=== PATIENT | female | born 1985 | race American Indian/Alaskan Native ===

== ENCOUNTER 2017-11-10 20:40 | Emergency (ER) | payer SELFPAY ==
[2017-11-10 21:14] LABS: Basophils % (Auto) 0.5 % (0.0-1.8); Eosinophils % (Auto) 0.6 % (0.0-4.3); Hemoglobin 8.7 gm/dl (10.1-14.3); Lymphocytes # (Auto) 1.7 K/mm3 (1.2-5.4); Mean Corpuscular HGB Conc 30 % (30-34); Monocytes # (Auto) 0.6 K/mm3 (0.0-0.8); Monocytes % (Auto) 7.6 % (0.0-7.3); Platelet Count 379 K/mm3 (140-440); Red Blood Count 4.26 M/mm3 (3.65-5.03); Red Cell Distribution Width 17.6 % (13.2-15.2)
[2017-11-10 21:15] LABS: Mean Corpuscular Hemoglobin 20 pg (28-32); Mean Corpuscular Volume 68 fl (79-97)
[2017-11-10 21:33] LABS: Alanine Aminotransferase 6 units/L (7-56); Albumin 4.3 g/dL (3.9-5); BUN/Creatinine Ratio 30; Blood Urea Nitrogen 15 mg/dL (7-17); Calcium 8.9 mg/dL (8.4-10.2); Hemolysis Index 9
[2017-11-10 21:43] LABS: Bilirubin,Urine NEG (Negative); Blood,Urine NEG (Negative); Color,Urine Yellow (Yellow); Mucus,Urine 3+ /HPF; Nitrite,Urine NEG (Negative); Urobilinogen,Urine < 2.0 mg/dL (<2.0)
[2017-11-10] MEDS ORDERED: ZOFRAN IV ONE (22:02)
[2017-11-10] MEDS ORDERED: NACL 0.9% 1000 ML 1,000 ML IV ONE (22:02)
--- NOTE | 2017-11-10 23:39 | Emergency Department Report ---
ED HPI - General Chief complaint: Abdominal Pain Stated complaint: N/V Abdominal Pain Time Seen by Provider: 11/10/17 21:55 Source: patient Mode of arrival: Ambulatory Limitations: No Limitations - History of Present Illness Initial comments: Patient is a 32-year-old Female who is presenting with nausea vomiting for the past week. Patient states she took a home test and is but does not know how far along she is last missed her period was 09/26/2017. Patient states she has some minor suprapubic discomfort but denies any dysuria or urinary frequency or bleeding. Patient states she has a clear vaginal discharge for the past 2 days. Patient denies diarrhea fevers chills cough or body aches at this time. - Related Data Previous Rx's Medication Instructions Recorded Last Taken Type Nitrofurantoin [place]/M-Cryst 100 mg PO Q12HR #14 capsule 11/10/17 Unknown Rx [Macrobid CAP] Vit No.129/Iron/Folic 1 each PO QDAY #1 bottle 11/10/17 Unknown Rx [ One Daily Tablet] Promethazine [Phenergan TAB] 25 mg PO Q8HR PRN #15 tab 11/10/17 Unknown Rx Allergies Allergy/AdvReac Type Severity Reaction Status Date / Time No Known Allergies Allergy Verified 10/04/15 21:37 ED Review of Systems ROS: Stated complaint: N/V Abdominal Pain Other details as noted in HPI Comment: All other systems reviewed and negative ED Past Medical Hx - Past Medical History Previous Medical History?: No - Surgical History Past Surgical History?: No - Social History Smoking Status: Never Smoker Substance Use Type: None - Medications Home Medications: Home Medications Medication Instructions Recorded Confirmed Last Taken Type Nitrofurantoin [place]/M-Cryst 100 mg PO Q12HR #14 capsule 11/10/17 Unknown Rx [Macrobid CAP] Vit No.129/Iron/Folic 1 each PO QDAY #1 bottle 11/10/17 Unknown Rx [ One Daily Tablet] Promethazine [Phenergan TAB] 25 mg PO Q8HR PRN #15 tab 11/10/17 Unknown Rx ED Physical Exam - General Limitations: No Limitations General appearance: alert, in no apparent distress - Head Head exam: Present: atraumatic, normocephalic - Eye Eye exam: Present: normal appearance - ENT ENT exam: Present: mucous membranes moist - Neck Neck exam: Present: normal inspection - Respiratory Respiratory exam: Present: normal lung sounds bilaterally. Absent: respiratory distress - Cardiovascular Cardiovascular Exam: Present: regular rate, normal rhythm. Absent: systolic murmur, diastolic murmur, rubs, gallop - GI/Abdominal GI/Abdominal exam: Present: soft, tenderness (suprapubic), normal bowel sounds. Absent: distended, guarding, rebound - Extremities Exam Extremities exam: Present: normal inspection - Back Exam Back exam: Present: normal inspection - Neurological Exam Neurological exam: Present: alert, oriented X3 - Psychiatric Psychiatric exam: Present: normal affect, normal mood - Skin Skin exam: Present: warm, dry, intact, normal color. Absent: rash ED Course Vital Signs 11/10/17 11/10/17 20:52 22:02 Temperature 98 F Pulse Rate 90 88 Respiratory 18 16 Rate Blood Pressure 108/64 Blood Pressure 121/78 [Left] O2 Sat by Pulse 100 98 Oximetry ED Medical Decision Making - Lab Data Result diagrams: 11/10/17 21:02 11/10/17 21:02 Lab Results 11/10/17 11/10/17 11/10/17 Range/Units 21:02 21:02 21:02 WBC 8.1 (4.5-11.0) K/mm3 RBC 4.26 (3.65-5.03) M/mm3 Hgb 8.7 L (10.1-14.3) gm/dl Hct 29.0 L (30.3-42.9) % MCV 68 L (79-97) fl MCH 20 L (28-32) pg MCHC 30 (30-34) % RDW 17.6 H (13.2-15.2) % Plt Count 379 (140-440) K/mm3 Lymph % (Auto) 21.0 (13.4-35.0) % [place] % (Auto) 7.6 H (0.0-7.3) % Eos % (Auto) 0.6 (0.0-4.3) % Baso % (Auto) 0.5 (0.0-1.8) % Lymph # 1.7 (1.2-5.4) K/mm3 [place] # 0.6 (0.0-0.8) K/mm3 Eos # 0.0 (0.0-0.4) K/mm3 Baso # 0.0 (0.0-0.1) K/mm3 Seg Neutrophils % 70.3 H (40.0-70.0) % Seg Neutrophils # 5.7 (1.8-7.7) K/mm3 Sodium 135 L (137-145) mmol/L Potassium 3.4 L (3.6-5.0) mmol/L Chloride 97.2 L (98-107) mmol/L Carbon Dioxide 21 L (22-30) mmol/L Anion Gap 20 mmol/L BUN 15 (7-17) mg/dL Creatinine 0.5 L (0.7-1.2) mg/dL Estimated GFR > 60 ml/min BUN/Creatinine Ratio 30 % Glucose 105 H (65-100) mg/dL Calcium 8.9 (8.4-10.2) mg/dL Total Bilirubin 0.60 (0.1-1.2) mg/dL AST 11 (5-40) units/L ALT 6 L (7-56) units/L Alkaline Phosphatase 40 (35-129) units/L Total Protein 8.4 H (6.3-8.2) g/dL Albumin 4.3 (3.9-5) g/dL Albumin/Globulin Ratio 1.0 % HCG, Quant 06830 H (0-4) mIU/mL Urine Color (Yellow) Urine Turbidity (Clear) Urine pH (5.0-7.0) Ur Specific [place] (1.003-1.030) Urine Protein (Negative) mg/dL Urine Glucose (UA) (Negative) mg/dL Urine Ketones (Negative) mg/dL Urine Blood (Negative) Urine Nitrite (Negative) Urine Bilirubin (Negative) Urine Urobilinogen (<2.0) mg/dL Ur Leukocyte Esterase (Negative) Urine WBC (Auto) (0.0-6.0) /HPF Urine RBC (Auto) (0.0-6.0) /HPF U Epithel Cells (Auto) (0-13.0) /HPF Urine Mucus /HPF /11/26 Range/Units 21:18 WBC (4.5-11.0) K/mm3 RBC (3.65-5.03) M/mm3 Hgb (10.1-14.3) gm/dl Hct (30.3-42.9) % MCV (79-97) fl MCH (28-32) pg MCHC (30-34) % RDW (13.2-15.2) % Plt Count (140-440) K/mm3 Lymph % (Auto) (13.4-35.0) % [place] % (Auto) (0.0-7.3) % Eos % (Auto) (0.0-4.3) % Baso % (Auto) (0.0-1.8) % Lymph # (1.2-5.4) K/mm3 [place] # (0.0-0.8) K/mm3 Eos # (0.0-0.4) K/mm3 Baso # (0.0-0.1) K/mm3 Seg Neutrophils % (40.0-70.0) % Seg Neutrophils # (1.8-7.7) K/mm3 Sodium (137-145) mmol/L Potassium (3.6-5.0) mmol/L Chloride (98-107) mmol/L Carbon Dioxide (22-30) mmol/L Anion Gap mmol/L BUN (7-17) mg/dL Creatinine (0.7-1.2) mg/dL Estimated GFR ml/min BUN/Creatinine Ratio % Glucose (65-100) mg/dL Calcium (8.4-10.2) mg/dL Total Bilirubin (0.1-1.2) mg/dL AST (5-40) units/L ALT (7-56) units/L Alkaline Phosphatase (35-129) units/L Total Protein (6.3-8.2) g/dL Albumin (3.9-5) g/dL Albumin/Globulin Ratio % HCG, Quant (0-4) mIU/mL Urine Color Yellow (Yellow) Urine Turbidity Clear (Clear) Urine pH 5.0 (5.0-7.0) Ur Specific [place] 1.026 (1.003-1.030) Urine Protein 30 mg/dl (Negative) mg/dL Urine Glucose (UA) Neg (Negative) mg/dL Urine Ketones 20 (Negative) mg/dL Urine Blood Neg (Negative) Urine Nitrite Neg (Negative) Urine Bilirubin Neg (Negative) Urine Urobilinogen < 2.0 (<2.0) mg/dL Ur Leukocyte Esterase Lg (Negative) Urine WBC (Auto) 4.0 (0.0-6.0) /HPF Urine RBC (Auto) 4.0 (0.0-6.0) /HPF U Epithel Cells (Auto) 9.0 (0-13.0) /HPF Urine Mucus 3+ /HPF - Medical Decision Making Patient is a 32-year-old female who is presenting with nausea vomiting. Patient apparently several weeks according to her last menstrual period. Patient has a Quant of 22,000 which is consistent with her estimated gestational age. Patient will be treated for her UTI she received IV fluids and nausea medicine here in the department and is feeling better like to go home. Critical care attestation.: If time is entered above; I have spent that time in minutes in the direct care of this critically ill patient, excluding procedure time. ED Disposition Clinical Impression: Hyperemesis arising during , UTI in Disposition: DC- TO HOME OR SELFCARE Is pt being admited?: No Does the pt Need Aspirin: No Condition: Stable Instructions: Urinary Tract Infection in Women (ED), Morning Sickness (ED), (ED) Prescriptions: Nitrofurantoin [place]/M-Cryst [Macrobid CAP] 100 mg PO Q12HR #14 capsule Vit No.129/Iron/Folic [ One Daily Tablet] 1 each PO QDAY #1 bottle Promethazine [Phenergan TAB] 25 mg PO Q8HR PRN #15 tab PRN Reason: Nausea Referrals: DARIEL LEWIS MD [Staff Physician] - 3-5 Days
[2017-11-11 00:33] VITALS: BP 118/68
== END 2017-11-11 00:15 | disposition home or self-care (01) ==
LOC: ED 20:40
DX: O23.41 Unspecified infection of urinary tract in pregnancy, first trimester (principal); O21.9 Vomiting of pregnancy, unspecified; Z3A.01 Less than 8 weeks gestation of pregnancy
CPT/HCPCS: 36415; 80053; 81001; 84702; 85025; 96361; 96374; 99283; J2405; J7030

== ENCOUNTER 2017-11-14 19:52 | Emergency (ER) | payer SELFPAY ==
[2017-11-14 21:50] VITALS: BP 106/70
[2017-11-15] MEDS ORDERED: REGLAN IV ONE (02:43)
[2017-11-15] MEDS ORDERED: NACL 0.9% 1000 ML 1,000 ML IV ONE (02:43)
--- NOTE | 2017-11-15 02:46 | Emergency Department Report ---
HPI - General Chief Complaint: Nausea/Vomiting/Diarrhea Time Seen by Provider: 11/15/17 02:34 - HPI HPI: Patient is a 32-year-old female who presents to ED complaining of nausea vomiting the past week. Patient states S last menstrual period was September 26, 2017 she took a home test that has been positive. Patient states that she is unable to keep anything down even water. She states she has an appointment with her [employer] later this month. Patient denies any vaginal bleeding, vaginal discharge or problems urinating. Pt was seen here 11/10/17 for similar sxs and states the nausea medication isnt working. ED Past Medical Hx - Past Medical History Previous Medical History?: No - Surgical History Past Surgical History?: No - Social History Smoking Status: Never Smoker Substance Use Type: None - Medications Home Medications: Home Medications Medication Instructions Recorded Confirmed Last Taken Type Nitrofurantoin [place]/M-Cryst 100 mg PO Q12HR #14 capsule 11/10/17 Unknown Rx [Macrobid CAP] Vit No.129/Iron/Folic 1 each PO QDAY #1 bottle 11/10/17 Unknown Rx [ One Daily Tablet] Promethazine [Phenergan TAB] 25 mg PO Q8HR PRN #15 tab 11/10/17 Unknown Rx Doxylamine Succinate/Vit B6 2 each PO QHS #40 tablet. 11/15/17 Unknown Rx [Arun Abdul 10-10 mg Tablet] ED Review of Systems ROS: Stated complaint: VOMITING/NAUSEA 6 WEEKS PREG Other details as noted in HPI Constitutional: denies: chills, fever Eyes: denies: eye pain, eye discharge, vision change ENT: denies: ear pain, throat pain Respiratory: denies: cough, shortness of breath, wheezing Cardiovascular: denies: chest pain, palpitations Endocrine: no symptoms reported Gastrointestinal: nausea, vomiting. denies: abdominal pain, diarrhea Genitourinary: denies: urgency, dysuria, discharge Musculoskeletal: denies: back pain, joint swelling, arthralgia Skin: denies: rash, lesions Neurological: denies: headache, weakness, paresthesias Psychiatric: denies: anxiety, depression Hematological/Lymphatic: denies: easy bleeding, easy bruising Physical Exam - Physical Exam Vital Signs: Vital Signs 11/14/17 21:48 Temperature 98.7 F Pulse Rate 85 Respiratory 16 Rate Blood Pressure 106/70 [Right] Physical Exam: GENERAL: Alert and oriented x3, no apparent distress, Normal Gait, atraumatic. No active vomiting during ED stay. Sitting comfortably in the room HEAD: Head is normocephalic and a-traumatic. MOUTH:Mouth is well hydrated and without lesions. Tonsils nonerythematous or swollen, Uvula midline, Tongue not elevated. Mucous membranes are moist. Posterior pharynx clear, no exudate or lesions. Patent airways. LUNGS: Symetrical with respiration, No wheezing, no rales or crackles, CTAB. HEART: S1, S2 present, regular rate and rhythm without murmur, no rubs, no gallops. Non tender to palpation ABDOMEN: No organomegaly was noted,Positive bowel sounds, soft, and non- distended. . Nontender to palpation on all Quadrants, NO CVA tenderness. SKIN: Warm and dry, No lesions, No ulceration or induration present. ED Course Vital Signs 11/14/17 21:48 Temperature 98.7 F Pulse Rate 85 Respiratory 16 Rate Blood Pressure 106/70 [Right] ED Medical Decision Making - Medical Decision Making 32-year-old female presents with nausea vomiting during ED course: Patient received 1 L of fluids and Reglan IV for nausea. Patient had no active vomiting in the ED Patient was seen here in the ED department on 11/10/2017 with similar symptoms. All labs were conducted and normal. was confirmed with Dr quant level of 22,000. Due to known status and no other preg symptoms, there is no need for test in the ED today. After administration of fluids and medication patient is feeling better like to go home. Vital signs stable. Patient is in no acute distress. Critical care attestation.: If time is entered above; I have spent that time in minutes in the direct care of this critically ill patient, excluding procedure time. ED Disposition Clinical Impression: Nausea and vomiting during Disposition: DC-01 TO HOME OR SELFCARE Is pt being admited?: No Does the pt Need Aspirin: No Condition: Stable Instructions: Morning Sickness (ED), (ED), Hyperemesis Gravidarum (ED ) Additional Instructions: Make sure to follow up with the primary care physician as discussed. Take all your medications as you've been prescribed. If you have any worsening symptoms or develop new symptoms please return to ED immediately. Prescriptions: Doxylamine Succinate/Vit B6 [Arun Abdul 10-10 mg Tablet] 2 each PO QHS #40 tablet. Referrals: ANDREWS REBOLLEDO MD [Primary Care Provider] - 3-5 Days MUKESH CUADRA MD [Referring] - 3-5 Days Forms: Work/School Release Form(ED)
== END 2017-11-15 03:30 | disposition home or self-care (01) ==
LOC: ED 19:52
DX: O21.9 Vomiting of pregnancy, unspecified (principal); Z3A.01 Less than 8 weeks gestation of pregnancy
CPT/HCPCS: 96361; 96374; 99282; J2765; J7030

== ENCOUNTER 2018-04-28 13:41 | Outpatient (CLI) | payer MEDICAID ==
[2018-04-28 14:44] VITALS: BP 110/68
[2018-04-28] MEDS ORDERED: LACTATED RINGERS 500 ML IV ONE ×2 (14:53→15:00)
[2018-04-28] MEDS ORDERED: BRETHINE SUB-Q ONE (16:00)
[2018-04-28 16:12] LABS: Bacteria,Urine 3+ /HPF (Negative); Bilirubin,Urine NEG (Negative); Blood,Urine NEG (Negative); Color,Urine Yellow (Yellow); Mucus,Urine FEW /HPF; Protein,Urine <15 mg/dL mg/dL (Negative); Urobilinogen,Urine < 2.0 mg/dL (<2.0)
== END 2018-04-28 16:35 | disposition home or self-care (01) ==
LOC: TRG 13:41
PROVIDERS: ATTEND Obstetrics & Gynecology
DX: O47.03 False labor before 37 completed weeks of gestation, third trimester (principal); Z3A.30 30 weeks gestation of pregnancy
CPT/HCPCS: 59025; 81001; 96372; J3105

== ENCOUNTER 2018-05-18 12:50 | Outpatient (CLI) | payer MEDICAID ==
[2018-05-18 13:07] VITALS: BP 100/59
[2018-05-18 15:32] LABS: Bacteria,Urine 2+ /HPF (Negative); Bilirubin,Urine NEG (Negative); Blood,Urine NEG (Negative); Color,Urine Yellow (Yellow); Mucus,Urine 1+ /HPF; Protein,Urine <15 mg/dL mg/dL (Negative); Urobilinogen,Urine < 2.0 mg/dL (<2.0)
[2018-05-18 15:38] LABS: Amphetamine Screen,Urine PRESUMPTIVE NEGATIVE; Benzodiazepines Screen,Urine PRESUMPTIVE NEGATIVE; Cannabinoid Screen,Urine PRESUMPTIVE NEGATIVE; Cocaine Screen,Urine PRESUMPTIVE NEGATIVE; Methadone Screen,Urine PRESUMPTIVE NEGATIVE; Opiate Screen,Urine PRESUMPTIVE NEGATIVE
== END 2018-05-18 15:57 | disposition home or self-care (01) ==
LOC: TRG 12:50
PROVIDERS: ATTEND Obstetrics & Gynecology
DX: O47.03 False labor before 37 completed weeks of gestation, third trimester (principal); Z3A.33 33 weeks gestation of pregnancy
CPT/HCPCS: 59025; 80307; 81001

== ENCOUNTER 2018-06-24 06:44 | Outpatient (CLI) | payer MEDICAID ==
[2018-06-24] MEDS ORDERED: LACTATED RINGERS 1,000 ML IV ONE (07:00)
[2018-06-24] MEDS ORDERED: VISTARIL PO PRN (07:43)
[2018-06-24] MEDS ORDERED: LACTATED RINGERS 1,000 ML ONE (08:42)
[2018-06-24 09:09] VITALS: BP 102/53
== END 2018-06-24 15:28 | disposition home or self-care (01) ==
LOC: TRG 06:44
PROVIDERS: ATTEND Obstetrics & Gynecology
DX: O47.1 False labor at or after 37 completed weeks of gestation (principal); Z3A.38 38 weeks gestation of pregnancy
CPT/HCPCS: J7120; Q0177

== ENCOUNTER 2020-10-11 16:09 | Emergency (ER) | payer MEDICAID ==
[2020-10-11 16:16] VITALS: BP 108/68
[2020-10-11 16:34] LABS: Basophils % (Auto) 0.4 % (0.0-1.8); Hematocrit 35.8 % (30.3-42.9); Hemoglobin 11.6 gm/dl (10.1-14.3); Lymphocytes # (Auto) 1.2 K/mm3 (1.2-5.4); Lymphocytes % (Auto) 11.3 % (13.4-35.0); Mean Corpuscular HGB Conc 32 % (30-34); Mean Corpuscular Volume 74 fl (79-97); Monocytes # (Auto) 0.8 K/mm3 (0.0-0.8); Monocytes % (Auto) 7.4 % (0.0-7.3); Platelet Count 327 K/mm3 (140-440); Red Blood Count 4.85 M/mm3 (3.65-5.03); Red Cell Distribution Width 17.1 % (13.2-15.2)
[2020-10-11 16:54] LABS: Alanine Aminotransferase 10 units/L (7-56); Albumin 4.7 g/dL (3.9-5); BUN/Creatinine Ratio 36; Blood Urea Nitrogen 29 mg/dL (7-17); Hemolysis Index 8
[2020-10-11] MEDS ORDERED: POTASSIUM CHLORIDE ER 20 MEQ TAB PO ONE ×2 (17:08→20:06)
[2020-10-11] MEDS ORDERED: ONDANSETRON 4 MG/2 ML INJ IV ONE (20:08)
[2020-10-11] MEDS ORDERED: SODIUM CHLORIDE 0.9% 1000 ML 1,000 ML IV ONE ×2 (20:08)
--- NOTE | 2020-10-11 20:12 | Emergency Department Report ---
HPI - General Chief Complaint: Nausea/Vomiting/Diarrhea Time Seen by Provider: 10/11/20 20:01 - HPI HPI: Room 38 The patient is a 34-year-old female present with a chief complaint of nausea vomiting. The patient states for the past 4 days she has had nausea vomiting with chills and a dry cough. Patient states she has been unable to keep anything down causing her to feel weak. Patient denies diarrhea or fever. Patient denies dysuria or hematuria. Patient denies pain of any type. Patient denies any known contact with Covid positive patients. ED Past Medical Hx - Past Medical History Previous Medical History?: No - Surgical History Past Surgical History?: No - Family History Family history: no significant - Social History Smoking Status: Never Smoker Substance Use Type: Alcohol (Occasional) - Medications Home Medications: Home Medications Medication Instructions Recorded Confirmed Last Taken Type Ferrous Sulfate [Feosol 325 MG tab] 1 tab PO DAILY 05/18/18 07/03/18 2 Days Ago History ~07/01/18 Vit No.129/Iron/Folic 1 each PO QDAY 05/18/18 07/03/18 2 Days Ago History [ One Daily Tablet] ~07/01/18 Ibuprofen [Motrin 800 MG tab] 800 mg PO Q8HR PRN #30 tablet 07/04/18 Unknown Rx Ondansetron [Zofran ODT TAB] 8 mg PO Q8HR #20 tab.rapdis 10/11/20 Unknown Rx Sulfamethoxazole/Trimethoprim 1 each PO BID #14 tablet 10/11/20 Unknown Rx [Bactrim DS TAB] ED Review of Systems ROS: Stated complaint: CANT EAT/DRINK Other details as noted in HPI Constitutional: weakness. denies: fever Eyes: denies: eye pain ENT: denies: throat pain Respiratory: cough Cardiovascular: denies: chest pain Endocrine: no symptoms reported Gastrointestinal: nausea, vomiting. denies: abdominal pain, diarrhea Genitourinary: denies: dysuria, hematuria Musculoskeletal: denies: back pain Neurological: denies: headache Physical Exam - Physical Exam Vital Signs: Vital Signs 10/11/20 16:12 Temperature 97.8 F Pulse Rate 92 H Respiratory 16 Rate Blood Pressure 108/68 [Right] O2 Sat by Pulse 98 Oximetry Physical Exam: GENERAL: The patient is well-developed well-nourished female lying on stretcher not appearing to be in acute distress. [] HEENT: Normocephalic. Atraumatic. Extraocular motions are intact. Patient has moist mucous membranes. NECK: Supple. Trachea midline CHEST/LUNGS: Clear to auscultation. There is no respiratory distress noted. HEART/CARDIOVASCULAR: Regular. There is no tachycardia. There is no gallop rub or murmur. ABDOMEN: Abdomen is soft, with trace discomfort to palpation in the suprapubic region. There is no rebound or guarding. Patient has normal bowel sounds. There is no abdominal distention. SKIN: There is no rash. There is no edema. There is no diaphoresis. NEURO: The patient is awake, alert, and oriented. The patient is cooperative. The patient has normal speech MUSCULOSKELETAL: There is no evidence of acute injury. ED Course Vital Signs 10/11/20 16:12 Temperature 97.8 F Pulse Rate 92 H Respiratory 16 Rate Blood Pressure 108/68 [Right] O2 Sat by Pulse 98 Oximetry - Reevaluation(s) Reevaluation #1: 10/11/20 23:21 Patient tolerating p.o. ED Medical Decision Making - Lab Data Result diagrams: 10/11/20 16:18 10/11/20 16:18 Laboratory Tests 10/11/20 10/11/20 10/11/20 16:18 16:18 Unknown WBC 10.4 RBC 4.85 Hgb 11.6 Hct 35.8 MCV 74 L MCH 24 L MCHC 32 RDW 17.1 H Plt Count 327 Lymph % (Auto) 11.3 L [place] % (Auto) 7.4 H Eos % (Auto) 0.0 Baso % (Auto) 0.4 Lymph # (Auto) 1.2 [place] # (Auto) 0.8 Eos # (Auto) 0.0 Baso # (Auto) 0.0 Seg Neutrophils % 80.9 H Seg Neutrophils # 8.4 H Sodium 132 L Potassium 2.8 L* Chloride 91.7 L Carbon Dioxide 27 Anion Gap 16 BUN 29 H Creatinine 0.8 Estimated GFR > 60 BUN/Creatinine Ratio 36 Glucose 132 H Calcium 10.0 Total Bilirubin 0.70 AST 14 ALT 10 Alkaline Phosphatase 43 Total Protein 9.6 H Albumin 4.7 Albumin/Globulin Ratio 1.0 Lipase 12 L Urine Color Yellow Urine Turbidity Cloudy Urine pH 6.0 Ur Specific [place] 1.027 Urine Protein >500 Urine Glucose (UA) Neg Urine Ketones 20 Urine Blood Neg Urine Nitrite Neg Urine Bilirubin Neg Urine Urobilinogen 2.0 Ur Leukocyte Esterase Mod Urine WBC (Auto) 17.0 H Urine RBC (Auto) 6.0 U Epithel Cells (Auto) 20.0 H Urine Mucus 3+ Urine Yeast (Budding) Few Urine HCG, Qual Negative - Radiology Data Radiology results: report reviewed (Acute abdominal series with chest x-ray), image reviewed (Acute abdominal series with chest x-ray) interpreted by me: Acute abdominal series with chest [id number] bowel gas pattern. No free air. No evidence of obstruction Acute abdominal series x-ray-no acute findings. Nonobstructive bowel gas pattern. - Differential Diagnosis Gastritis, small bowel obstruction, pneumonia, UTI, Critical care attestation.: If time is entered above; I have spent that time in minutes in the direct care of this critically ill patient, excluding procedure time. ED Disposition Clinical Impression: Nausea & vomiting, Dehydration, UTI (urinary tract infection) Disposition: TO HOME OR SELFCARE Is pt being admited?: No Does the pt Need Aspirin: No Condition: Stable Additional Instructions: Return to the emergency department should you develop worsening symptoms, inability to tolerate food or liquids, high fever or any other concerns Prescriptions: Sulfamethoxazole/Trimethoprim [Bactrim DS TAB] 1 each PO BID #14 tablet Ondansetron [Zofran ODT TAB] 8 mg PO Q8HR #20 tab.rapdis Referrals: DHARMESH JUAN MD [Staff Physician] - 3-5 Days (Dr Juan is a primary physician. Please follow-up with him for further evaluation) Time of Disposition: 23:25
[2020-10-11 22:33] LABS: Bilirubin,Urine NEG (Negative); Blood,Urine NEG (Negative); Color,Urine Yellow (Yellow); HCG Qualitative,Urine Negative (Negative); Mucus,Urine 3+ /HPF; Protein,Urine >500 mg/dL (Negative)
--- NOTE | 2020-10-11 23:22 | XRay Report ---
XR abd series w cxr 1VCHEST 1 VIEW, XR ABDOMEN 1 VIEW INDICATION / CLINICAL INFORMATION: Intractable nausea vomiting, dry cough. COMPARISON: None available. FINDINGS: SUPPORT DEVICES: None. HEART / MEDIASTINUM: No significant abnormality. LUNGS / PLEURA: Lungs are clear. Costophrenic sulci are sharp. No pneumothorax. ABDOMEN: Nonobstructive bowel gas pattern. No pneumoperitoneum. ADDITIONAL FINDINGS: No significant additional findings. IMPRESSION: 1. No acute findings. 2. Nonobstructive bowel gas pattern. Signer Name: Michael Galarza MD Signed: 10/11/2020 11:18 PM Workstation Name: [id number]
== END 2020-10-11 23:40 | disposition home or self-care (01) ==
LOC: ED 16:09
DX: N39.0 Urinary tract infection, site not specified (principal); E86.0 Dehydration; R11.2 Nausea with vomiting, unspecified; Z79.1 Long term (current) use of non-steroidal anti-inflammatories (NSAID); Z79.899 Other long term (current) drug therapy
CPT/HCPCS: 36415; 74022; 80053; 81001; 81025; 83690; 85025; 87086; 96361; 96374; 99284; J2405; J7030